=== PATIENT | female | born 1960 | race Caucasian/White ===

== ENCOUNTER 2024-03-06 11:13 | Outpatient (CLI) | payer BC ==
--- NOTE | 2024-03-06 13:39 | Mammography Report ---
BILATERAL DIGITAL DIAGNOSTIC MAMMOGRAM 3D/2D: 03/06/2024 CLINICAL: Patient returns for additional imaging over a suspected mass in the left breast. No prior exams were available for comparison. Both breasts are heterogeneously dense, which may obscure small masses (category c / 51-75% glandular tissue). There is a possible equal density focal asymmetry with an obscured margin in the right breast at 11 o 'clock posterior depth. There is an irregular high density mass with a spiculated and microlobulated margin in the left breas t central to the nipple with involvement of all four quadrants of the breast. The mass is difficult to measure due to it's size, but is approximately 8-9 cm in maximum dimension. This correlates as pal pated. There is skin involvement and nipple retraction associated with the mass. No other significant masses or calcifications are seen in either breast. IMPRESSION: INCOMPLETE: NEEDS ADDITIONAL IMAGING EVALUATION The possible equal density focal asymmetry in the right breast at 11 o'clock posterior depth has a di fferential diagnosis of fibroglandular tissue and is indeterminate. An ultrasound is recommended. The large irregular high density mass in the left breast central to the nipple is indeterminate. An ultrasound is recommended. Based on the Tyrer Cuzick model (a risk assessment model) the patient's lifetime risk is 9.3% and her 10 year risk is 4.0%. According to the ACR, ACS, and NCCN guidelines, an annual breast MRI exam donna g with mammogram is recommended if the patient's lifetime risk is 20% or greater. This exam was interpreted at Station ID: [id number]. NOTE: For mammograms, a report in lay terms will be sent to the patient. Approximately 15% of breast malignancies will not be visualized mammographically. In the management of a palpable breast mass, a negative mammogram must not discourage biopsy of a clinically suspicious lesion. Electronically Signed By: Natalio Mitchell M.D. ar/:03/06/2024 12:24:23 ACR BI-RADS Category 0: Incomplete 3340F PARENCHYMAL PATTERN: (D) - The breast(s) demonstrate(s) heterogeneously dense fibroglandular parenchy ma. BI-RADS CATEGORY: (0) - 0 Ultrasound [id number] Immediate follow-up LATERALITY: (B)
--- NOTE | 2024-03-06 13:39 | Ultrasound Report ---
LIMITED ULTRASOUND OF LEFT BREAST AND AXILLA: 03/06/2024 CLINICAL: Palpable left breast lump. Comparison is made to exam dated: 03/06/2024 mammogram - [facility]. Color flow ultrasound of the left breast 12 o'clock, retroareolar, and axilla regions was performed. Lee scale images of the real-time examination were reviewed. There is an irregular mass in the left breast central to the nipple middle depth. This irregular mas s is hypoechoic. This correlates as palpated and with breast MRI findings. Color flow imaging demon strates that there is vascularity present. Mass is measured at 5.0 x 2.8 x 4.3 cm on ultrasound shravan ges, but the size is likely underestimated due to the limitations of ultrasound scanning. There also is a 0.6 cm x 0.6 cm x 1 cm left axillary lymph node with eccentric cortical thickening. IMPRESSION: HIGHLY SUGGESTIVE OF MALIGNANCY The large irregular mass in the left breast central to the nipple middle depth is highly suggestive o f malignancy. An ultrasound guided biopsy is recommended. Alternatively, skin biopsy or surgical bi opsy could be performed due dermal involvement. The findings and recommendations were discussed with the patient in person at the time of the exam. Consider breast MRI to evaluate the extent of disease . The 0.6 cm x 0.6 cm x 1 cm left axillary lymph node with eccentric cortical thickening is suspicious of malignancy. An ultrasound guided biopsy is recommended. This exam was interpreted at Station ID: [id number]. Electronically Signed By: Natalio Mitchell M.D. ar/:03/06/2024 12:47:56 Ultrasound BI-RADS: 5 Highly suggestive of malignancy BI-RADS CATEGORY: (5) - 5 Biopsy [id number] Immediate follow-up LATERALITY: (L)
--- NOTE | 2024-03-06 13:39 | Ultrasound Report ---
LIMITED ULTRASOUND OF RIGHT BREAST: 03/06/2024 CLINICAL: Patient returns today to evaluate a focal asymmetry in the right breast. Comparison is made to exam dated: 03/06/2024 mammogram - [facility]. Color flow ultrasound of the right breast 10-11 o'clock region was performed. Lee scale images of t he real-time examination were reviewed. No significant abnormalities were seen sonographically in the right breast. IMPRESSION: NEGATIVE There is no sonographic evidence of malignancy. There is no abnormality seen in the right breast to correspond with the mammography finding in the up per outer quadrant which is consistent with normal fibroglandular tissue. This exam was interpreted at Station ID: [id number]. Electronically Signed By: Natalio chirinos/mei:03/06/2024 12:48:45 letter sent: No_Letter Ultrasound BI-RADS: 1 Negative BI-RADS CATEGORY: (1) - 1 Unspecified - other recall n/a LATERALITY: (B)
== END 2024-03-06 11:14 | disposition home or self-care (01) ==
LOC: DI 11:13
PROVIDERS: ATTEND Family Medicine
DX: R92.8 Other abnormal and inconclusive findings on diagnostic imaging of breast (principal); N63.42 Unspecified lump in left breast, subareolar; R92.333 Mammographic heterogeneous density, bilateral breasts

== ENCOUNTER 2024-03-20 13:36 | Outpatient (CLI) | payer BC ==
[2024-03-20] MEDS ORDERED: LIDOCAINE 1%-EPI 1:100000 20 ML MDV ONE (13:52)
[2024-03-20] MEDS ORDERED: LIDOCAINE-MPF 1% 5 ML VIAL ONE (13:53)
[2024-03-20] MEDS ORDERED: LIDOCAINE-MPF 1% 5 ML VIAL TD ONE (15:40)
[2024-03-20] MEDS: LIDOCAINE 1%-EPI 1:100000 20 ML MDV SUBQ ONE (15:44)
--- NOTE | 2024-03-21 07:44 | Mammography Report ---
UNILATERAL LEFT DIGITAL DIAGNOSTIC MAMMOGRAM WITH EXAGGERATED CC - LEFT BREAST POST-PROCEDURE IMAGING FOR MARKER PLACEMENT: 03/20/2024 CLINICAL: Post left breast ultrasound biopsy clip placement imaging. Comparison is made to exams dated: 03/06/2024 ultrasound and 03/06/2024 mammogram - [facility]. The left breast is heterogeneously dense, which may obscure small masses (category c / 51-75% glandul ar tissue). There is a marker clip in the appropriate position in the left breast central to the nipple middle de pth. This marker clip placement is at the biopsy site. IMPRESSION: POST PROCEDURE MAMMOGRAM FOR MARKER PLACEMENT There is a marker clip in the appropriate position in the left breast central to the nipple middle de pth. This marker clip placement is at the biopsy site. A clip was also placed in the biopsied axillary lymph node, which could not be visualized on mammogra phy. Based on the Tyrer Cuzick model (a risk assessment model) the patient's lifetime risk is 9.3% and her 10 year risk is 4.0%. According to the ACR, ACS, and NCCN guidelines, an annual breast MRI exam donna g with mammogram is recommended if the patient's lifetime risk is 20% or greater. This exam was interpreted at Station ID: [id number]. NOTE: For mammograms, a report in lay terms will be sent to the patient. Approximately 15% of breast malignancies will not be visualized mammographically. In the management of a palpable breast mass, a negative mammogram must not discourage biopsy of a clinically suspicious lesion. Electronically Signed By: Benjamin Martin M.D. lc/:03/20/2024 16:08:57 ACR BI-RADS Category Post-procedure mammogram for marker placement PARENCHYMAL PATTERN: (D) - The breast(s) demonstrate(s) heterogeneously dense fibroglandular pardiego ma. BI-RADS CATEGORY: () - Unspecified - other recall n/a LATERALITY: (B)
--- NOTE | 2024-03-28 14:20 | Ultrasound Report ---
ULTRASOUND GUIDED BIOPSY LEFT BREAST USING VACUUM DEVICE WITH MARKING DEVICE INSERTED AND POST MAMMOG RAPHIC IMAGIN03/20/2024 CLINICAL: Left Breast Mass. PATIENT CONSENT: Risks (minor bleeding, infection, vasovagal reaction and repeat procedure), benefits and alternatives were explained to the patient and written informed consent was obtained. Correlation is made to exams dated: 03/06/2024 ultrasound and 03/06/2024 mammogram - [facility]. An ultrasound guided biopsy using real-time ultrasound was performed for the concerning irregular sha ped mass located in the left breast central to the nipple middle depth. This was described on the pr evious ultrasound report. The skin was prepped in the usual manner. Local anesthetic was administer ed to the access site. A skin jay was made in the breast. The abnormality was approached from the lateral aspect. A 12 gauge biopsy needle was placed adjacent to the abnormality under ultrasound jean dance. Once the needle was documented to be in the correct location, three specimens were obtained u sing the Mammotome biopsy system. A clip was inserted into the biopsy cavity. Post procedure mammog raphic imaging demonstrates the location device at the targeted area. The specimens were sent to the laboratory for pathological analysis. IMPRESSION: ULTRASOUND GUIDED BIOPSY MALIGNANT Ultrasound guided biopsy of the mass in the left breast central to the nipple middle depth was succes sful. 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 Pathology resu lts are concordant with imaging findings. Oncologic/surgical consultation recommended. This exam was interpreted at Station ID: [id number]. Benjamin Martin M.D. lc/:03/28/2024 09:17:47 BI-RADS CATEGORY: () - Unspecified - other recall n/a LATERALITY: (B)
--- NOTE | 2024-03-28 14:20 | Ultrasound Report ---
ULTRASOUND GUIDED BIOPSY LEFT BREAST WITH MARKING DEVICE INSERTED AND POST MAMMOGRAPHIC IMAGIN03/20 CLINICAL: Left axillary node biopsy. PATIENT CONSENT: Risks (minor bleeding, infection, vasovagal reaction and repeat procedure), benefits and alternatives were explained to the patient and written informed consent was obtained. Correlation is made to exams dated: 03/06/2024 ultrasound and 03/06/2024 mammogram - [facility]. An ultrasound guided biopsy using real-time ultrasound was performed for the concerning lymph node lo cated in the left axillary tail. This was described on the previous ultrasound report. The skin was prepped in the usual manner. Local anesthetic was administered to the access site. A skin jay was made in the breast. The abnormality was approached from the lateral aspect. An 18 gauge biopsy nee dle was placed adjacent to the abnormality under ultrasound guidance. Once the needle was documented to be in the correct location, four specimens were obtained using a BARD biopsy device. A clip was inserted into the biopsy cavity. Post procedure mammographic imaging demonstrates the location devic e at the targeted area. The specimens were sent to the laboratory for pathological analysis. IMPRESSION: ULTRASOUND GUIDED BIOPSY MALIGNANT Ultrasound guided biopsy of the lymph node in the left axillary tail was successful. Pathology indic ates malignant metastatic to axillary lymph nodes (MDN). Pathology results are concordant with imagi findings. This exam was interpreted at Station ID: [id number]. Benjamin johnston/[email or web address]:03/28/2024 09:19:39 BI-RADS CATEGORY: () - Unspecified - other recall n/a LATERALITY: (B)
== END 2024-03-20 13:37 | disposition home or self-care (01) ==
LOC: DI 13:36
PROVIDERS: ATTEND Family Medicine
DX: C50.112 Malignant neoplasm of central portion of left female breast (principal); C77.3 Secondary and unspecified malignant neoplasm of axilla and upper limb lymph nodes; Z17.1 Estrogen receptor negative status [ER-]
CPT/HCPCS: 19083; 38505

== ENCOUNTER 2024-03-27 08:00 | Outpatient (CLI) | payer BC ==
[2024-03-27 15:54] LABS: BASOPHILS # (AUTO) 0.1 10^3/uL (0.0-0.1); BASOPHILS % (AUTO) 0.7 %; EOSINOPHILS # (AUTO) 0.1 10^3/uL (0.0-0.7); EOSINOPHILS % (AUTO) 0.3 %; HCT - HEMATOCRIT 38.7 % (37.0-47.0); HGB - HEMOGLOBIN 12.9 g/dL (12.0-16.0); LYMPHOCYTES # (AUTO) 2.7 10^3/uL (1.5-3.5); LYMPHOCYTES % (AUTO) 18.7 %; MEAN CORPUSCULAR HEMOGLOBIN 32.8 pg (27.0-31.0); MEAN CORPUSCULAR HGB CONC 33.3 g/dL (32.0-36.0); MEAN CORPUSCULAR VOLUME 98.5 fL (81.0-99.0); MEAN PLATELET VOLUME 10.9 fL (7.9-10.8); MONOCYTES # (AUTO) 1.7 10^3/uL (0.0-1.0); MONOCYTES % (AUTO) 11.7 %; NEUTROPHILS # (AUTO) 9.8 10^3/uL (1.5-6.6); NEUTROPHILS % (AUTO) 66.8 %; NRBC ABSOLUTE COUNT (AUTO) 0.08 x10^3/uL; NUCLEATED RED BLOOD CELLS AUTO 0.5 /100WBC; PLT - PLATELET COUNT 282 10^3/uL (130-450); RED BLOOD COUNT 3.93 10^6/uL (4.20-5.40); RED CELL DISTRIBUTION WIDTH 16.7 % (12.0-15.0); WHITE BLOOD COUNT 14.7 x10^3/uL (4.8-10.8)
[2024-03-27 15:58] LABS: INR 1.1 (0.8-1.2); PT - PROTHROMBIN TIME 12.6 secs (9.9-12.6); SLIDE REVIEW? Indicated
[2024-03-27 16:35] LABS: ALBUMIN 3.3 g/dL (3.2-5.5); BILIRUBIN,TOTAL 1.6 mg/dL (0.2-1.0); CALCIUM 8.9 mg/dL (8.5-10.3); CREATININE 0.5 mg/dL (0.6-1.3); POTASSIUM 3.9 mmol/L (3.5-4.5); TOTAL PROTEIN 6.7 g/dL (6.4-8.9)
[2024-03-27 17:39] LABS: DIFFERENTIAL COMMENT MANUAL=AUTO DIFF; PLATELET ESTIMATE, MANUAL NORMAL (130-450,000) (NORMAL); PLATELET MORPHOLOGY NORMAL APPEARANCE (NORMAL); RBC MORPHOLOGY (MULTIPLE) NORMAL APPEARANCE (NORMAL)
== END 2024-03-27 23:59 | disposition home or self-care (01) ==
LOC: LAB 08:00
PROVIDERS: ATTEND Surgery
DX: C50.812 Malignant neoplasm of overlapping sites of left female breast (principal)
CPT/HCPCS: 36415; 80053; 85025; 85610

== ENCOUNTER 2024-04-05 08:10 | Day surgery (SDC) | payer BC ==
[2024-04-05] MEDS ORDERED: CLINDAMYCIN 900 MG/50 ML 900 MG/50 ML BAG IV ONE (08:16)
[2024-04-05] MEDS: LACTATED RINGERS 1,000 ML IV ONE ×2 (08:42→10:35)
--- NOTE | 2024-04-05 08:52 | ANESTHESIA ---
Pre-Anesthesia VS, & Labs - Diagnosis breast cancer - Procedure port placement Vital Signs: Temp Pulse Resp BP Pulse Ox O2 Flow Rate 36.9 C 92 18 115/68 99 04/05/24 08:28 04/05/24 08:28 04/05/24 08:28 04/05/24 08:28 04/05/24 08:28 Height: 5 ft 2 in Weight (kg): 45.7 kg Body Mass Index: 18.4 BMI Classification: Underweight - NPO >8 hours - Is Patient ?: No Home Medications and Allergies Home Medications: Ambulatory Orders HYDROcod/ACETAM 5/325 [Danforth 5/325] 1 tablet PO Q6H PRN 03/28/24 Loratadine [Claritin] 10 mg PO PRN PRN 03/28/24 HYDROcod/ACETAM 5/325 [Danforth 5/325] 1 tablet PO Q6H PRN 03/28/24 Loratadine [Claritin] 10 mg PO PRN PRN 03/28/24 Allergies/Adverse Reactions: Allergies Allergy/AdvReac Type Severity Reaction Status Date / Time NSAIDS (Non-Steroidal Allergy Anaphylaxis Verified 03/28/24 12:40 Anti-Inflamma Penicillins Allergy Anaphylaxis Verified 03/28/24 12:40 Anes History & Medical History - Anesthetic History Anesthesia Complications: reports: No previous complications - Medical History Cardiovascular: reports: None Pulmonary: reports: None Gastrointestinal: reports: None Urinary: reports: None Musculoskeletal: reports: Osteoarthritis Endocrine/Autoimmune: reports: None Skin: reports: None Smoking Status: Former smoker Psychosocial: reports: Alcohol (3-4 week) History of Cancer?: Yes - Surgical History Gynecologic: reports: Other Exam General: Alert, Oriented x3 Dental: WNL Mouth Opening: Greater than 4 Fingerbreadths Neck Mobility: Normal Mallampati classification: II Thyromental Distance: greater than 6 cm Respiratory: Lungs clear Cardiovascular: Regular rate Plan Anesthesia Type: MAC, Total IV Consent for Procedure(s) Verified and Reviewed: Yes Code Status: Attempt Resuscitation ASA classification: 3-Severe systemic disease Is this case an emergency?: No
[2024-04-05] MEDS ORDERED: LIDOCAINE 1%-EPI 1:100000 20 ML MDV ONE (08:59)
[2024-04-05] MEDS ORDERED: MIDAZOLAM 2 MG/2 ML VIAL ONE (08:59)
[2024-04-05] MEDS ORDERED: BUPIVACAINE 0.5%-EPI 1:200000 PF 10 ML VIAL ONE (08:59)
[2024-04-05] MEDS ORDERED: fentaNYL 100 MCG/2 ML VIAL ONE (08:59)
[2024-04-05] MEDS ORDERED: LIDOCAINE-MPF 2% 5 ML VIAL ONE (08:59)
[2024-04-05] MEDS ORDERED: lidocaine 1% 20 ML MDV ONE (09:00)
[2024-04-05] MEDS: LIDOCAINE 1% 50 ML MDV SUBQ ONE ×2 (10:01)
[2024-04-05] MEDS: BUPIVACAINE 0.5%-EPI 1:200000 PF 30 ML VIAL SUBQ ONE ×2 (10:02)
[2024-04-05] MEDS ORDERED: PROPOFOL 200 MG/20 ML VIAL IVP ONE (10:04)
--- NOTE | 2024-04-05 10:52 | OPERATIVE REPORT ---
Operative Report - General Procedure Date: 04/05/24 Planned Procedure: chemoport placement Pre-Op Diagnosis: left breast cancer Procedure Performed: port placement, RIGHT internal jugular vein Post Op Diagnosis: left breast cancer - Procedure Note Primary Surgeon: Jenni Iniguez DO, FACS Anesthesia Technique: MAC Pathology: none Estimated Blood Loss (mL): 2 Indications: New diagnosis of Stage 3B vs Stage 4 breast cancer, chemotherapy indicated. Findings: 8F Powerport MR-compatible implatable port placed to RIJ under US and fluoroscopic guidance. Complications: none - Other Other Information/Narrative: The patient was met in the preoperative holding area where informed consent was confirmed and all questions and concerns were answered. The patient was then taken back to the operating room where a time-out was performed to ensure correct patient, site, and surgical procedure. The chest and neck bilaterally were prepped and draped in standard fashion, antibiotics were administered, and monitored sedation was initiated by the QUALITY ASSURANCE/R&D LAB TECHNICIAN. The right internal jugular vein was visualized in trendelenberg position under ultrasound, and accessed with seldinger technique and a wire advanced into the vena cava, which was confirmed with XRAY. A subcutaneous pocket at the right anterior chest two finger breadths below the clavicle was made with bovie electrocautery after injecting local anesthetic. The port hub was secured in the pocket with 2-0 vicryl at the interior aspect and 2-0 prolene at the right superior and left superior aspect. The catheter was then tunneled subcutaneously to the right neck adjacent to the wire using the tunneler. The catheter was then flushed with injectable saline. The catheter length was measured with XRAY and cut to 23cm. The dilator and sheath were then advanced over the wire under fluoroscopic visualization, and the dilator and wire were removed. The catheter was then threaded through the peel-away sheath, and its final position in the superior vena cava 2cm below the dilia was confirmed on XRAY. The port and then catheter were then heparin-locked after confirming that blood could be easily aspirated. The subcutaneous pocket was irrigated, remainder of local injected, and the skin closed with 3-0 vicryl deep dermal sutures followed by running 4-0 monocryl subcuticular sutures. The Skin incision at the right neck was closed with a single 4-0 monocryl subcuticular suture. Dermabond was applied. There were no complications. The patient was awoken and taken to the PACU where a postop chest XRAY was obtained, showing no pneumothorax. All sponge and needle counts were correct. Jenni Iniguez DO, FACS General Surgeon Jake
--- NOTE | 2024-04-05 11:11 | Discharge Plan ---
Discharge Plan Problem Reviewed?: Yes Disposition: Home, Self Care Condition: Good Prescriptions: oxyCODONE [Roxicodone] 5 mg PO Q4-6H PRN 14 Days #10 tablet PRN Reason: Moderate Pain (Level 4-6) Diet: Regular Activity Restrictions: No Restrictions Shower Restrictions: No Driving Restrictions: No (unless taking oxycodone - do not drive when taking narcotics. ) Plan of Treatment: Continue follow up with Dr. Townsend and Dr. Iniguez, as well as scheduled imaging studies. The port may be used immediately by nursing. No Smoking: If you smoke, Please STOP! Call for help. Follow-up with: Tiffani Townsend MD [Provider Admit Priv/Credential] - Jenni Iniguez DO [Provider Admit Priv/Credential] -
[2024-04-05 11:23] VITALS: BP 93/72; O2SAT 97
--- NOTE | 2024-04-05 11:25 | XRAY Report ---
PROCEDURE: Chest 1V INDICATIONS: r/o PTX s/p RIJ port placement in OR - upright TECHNIQUE: One view of the chest was acquired. COMPARISON: None. FINDINGS: Surgical changes and devices: Right chest wall port hip projects over the low SVC. Lungs and pleura: No pleural effusions or pneumothorax. Lungs are clear. Mediastinum: Mediastinal contours appear normal. Heart size is normal. Bones and chest wall: No suspicious bony lesions. Overlying soft tissues appear unremarkable. IMPRESSION: Right chest wall port. No pneumothorax. Reviewed by: Jones Butler MD on 04/05/2024 11:24 AM PDT Approved by: Jones Butler MD on 04/05/2024 11:24 AM PDT Station ID: [id number]
--- NOTE | 2024-04-05 11:32 | XRAY Report ---
PROCEDURE: OR Port-A-Cath INDICATIONS: PORTACATH PLACEMENT CONTRAST: None FLUORO TIME: 000.4 TECHNIQUE: Real time fluoroscopy was performed of the thorax. COMPARISON: None. FINDINGS/IMPRESSION: Fluoroscopic guidance utilized for a right-sided port placement. Reviewed by: Jones Butler MD on 04/05/2024 11:30 AM PDT Approved by: Jones Butler MD on 04/05/2024 11:30 AM PDT Station ID: [id number]
--- NOTE | 2024-04-05 15:32 | ANESTHESIA POST OP EVALUATION ---
Anesthesia Post Eval - Post Anesthesia Eval Vitals: Last Vital Signs Temp 36.6 C 04/05/24 11:00 Pulse 85 04/05/24 11:00 Resp 16 04/05/24 11:00 BP 93/72 04/05/24 11:00 Pulse Ox 97 04/05/24 11:00 O2 Flow Rate CV Function Including HR & BP: Stable Pain Control: Satisfactory Nausea & Vomiting: Negative Mental Status: Baseline Respiratory Status: Airway Patent Hydration Status: Satisfactory Anesthesia Complications: None
== END 2024-04-05 08:11 | disposition home or self-care (01) ==
LOC: SDS 08:10
PROVIDERS: ATTEND Surgery
DX: C50.812 Malignant neoplasm of overlapping sites of left female breast (principal); Z17.1 Estrogen receptor negative status [ER-]
CPT/HCPCS: 36561; 71045; C1788; J7120

== ENCOUNTER 2024-04-07 10:22 | Outpatient (CLI) | payer BC ==
[~2024-04-07 10:22] MED LIST: iohexoL-300 100 ML VIAL ONE
[2024-04-07] MEDS ORDERED: iohexoL-300 100 ML VIAL ONE (10:27)
[2024-04-07] MEDS ORDERED: DIATRIZOATE MEGLU/DIATRIZO SOD 30 ML BOTTLE PO ONE (10:27)
--- NOTE | 2024-04-07 13:05 | CT Report ---
PROCEDURE: Abdomen/Pelvis W INDICATIONS: BREAST CA CONTRAST: omni, 100 TECHNIQUE: After the administration of intravenous contrast, a CT scan of the abdomen and pelvis was performed. Images were recorded and evaluated at appropriate window settings. Reformats: coronal and sagittal. F or radiation dose reduction, the following was used: automated exposure control, adjustment of mA and /or kV according to patient size. COMPARISON: None. FINDINGS: Image quality: Diagnostic. Lower chest: Separately dictated Liver: Hepatomegaly. Innumerable liver metastases. Index lesions as follows: -2.1 cm in segment 6/7 (series 2, image 46). -2.3 cm and segment 7 (series 2, image 40). Gallbladder: Contracted, with a diffusely thickened wall. Biliary tree: No intrahepatic or extrahepatic dilation, accounting for age. Spleen: No splenomegaly. Pancreas: No pancreatic ductal dilation. Adrenals: No adrenal nodule. Kidneys and ureters: No hydronephrosis. No renal cystic lesion which requires follow up. No solid mas s. Stomach, bowel and peritoneum: No gastric or small bowel dilation. No abnormal wall thickening. Moder ate volume ascites. Diverticulosis without evidence of diverticulitis. Lymph nodes: No central or retroperitoneal adenopathy. Vessels: No infrarenal aortic aneurysm. Patent portal vein. PELVIS Reproductive organs: Right ovarian cystic lesion with a mildly thickened wall measuring 2 cm. Bladder: No abnormal wall thickening, accounting for underdistention. Pelvic lymph nodes: No pelvic adenopathy by size criteria. Bones: A subtle dense lesions throughout the spine and pelvis, concerning for diffuse metastatic dise ase. For example, the dense lesion in the right posterior iliac bone measuring 7 mm (series 2, image 98). No measurable soft tissue component. Other: No significant ventral or inguinal hernia. IMPRESSION: Diffuse metastatic disease of the liver. Suspected diffuse metastatic disease of the bones. Correlate with bone scan. Right ovarian cystic lesion with a mildly thickened wall measuring 2 cm. Recommend pelvic ultrasound for complete characterization. Moderate volume ascites. Chest CT separately dictated. Reviewed by: Jones Butler MD on 04/07/2024 1:04 PM PDT Approved by: Jones Butler MD on 04/07/2024 1:04 PM PDT Station ID: [id number]
--- NOTE | 2024-04-07 13:18 | CT Report ---
PROCEDURE: Chest W INDICATIONS: BREAST CA CONTRAST: omni, 100 TECHNIQUE: After the administration of intravenous contrast, a CT scan of the chest was performed. Images were recorded and evaluated at appropriate window settings. Reformats: axial MIP of the chest, coronal and sagittal. For radiation dose reduction, the following was used: automated exposure control, adjustme nt of mA and/or kV according to patient size. COMPARISON: None. FINDINGS: Image quality: Diagnostic. Chest wall and lower neck: No thyroid nodule which requires sonographic follow up. Dominant left maria [address] st mass measuring 6.4 x 4.4 cm. Nodularity anterior to the breast mass concerning for satellite lesio ns. There are metastatic deposits in the left pectoralis major muscle. Enlarged and heterogeneous lef t level 1 and level 2 lymph nodes, consistent with metastatic disease. Enlarged internal mammary node measuring 5 mm short axis (series 2, image 43). Right IJ central venous catheter tip terminates in t he low SVC. Gas around the hub, presumably from recent placement. Lungs and pleura: No consolidation. No pleural effusions. No pneumothorax. No suspicious pulmonary n odules which require follow up. Mediastinum: Heart size is normal. No pericardial effusion. No large vessel abnormality. No mediastin al adenopathy by size criteria. Bones: Subtle dense bony lesions, concerning for osseous metastatic disease. For example, the dense l esion in the inferior endplate of T4. Upper Abdomen: Separately dictated. IMPRESSION: Dominant left breast mass with satellite nodules. Some solid nodules are present within the left pect oralis major muscle. Lymphadenopathy of the axillary level 1, level 2 and internal mammary stations. Suspected diffuse osseous metastatic disease. Reviewed by: Jones Butler MD on 04/07/2024 1:16 PM PDT Approved by: Jones Butler MD on 04/07/2024 1:16 PM PDT Station ID: [id number]
[2024-04-07] MEDS: iohexoL-300 100 ML VIAL IVP ONE (14:11)
[2024-04-07] MEDS: DIATRIZOATE MEGLU/DIATRIZO SOD 30 ML BOTTLE PO ONE (14:11)
== END 2024-04-07 10:23 | disposition home or self-care (01) ==
LOC: DI 10:22
PROVIDERS: ATTEND Surgery
DX: C50.812 Malignant neoplasm of overlapping sites of left female breast (principal); R59.0 Localized enlarged lymph nodes; R93.7 Abnormal findings on diagnostic imaging of other parts of musculoskeletal system; C78.7 Secondary malignant neoplasm of liver and intrahepatic bile duct; N83.201 Unspecified ovarian cyst, right side
CPT/HCPCS: 71260; 74177; Q9963; Q9967

== ENCOUNTER 2024-04-15 13:42 | Outpatient (CLI) | payer BC | END 2024-04-15 13:43 | disposition home or self-care (01) | LOC: RT 13:42 | PROVIDERS: ATTEND Surgery | DX: C50.812 Malignant neoplasm of overlapping sites of left female breast (principal) | CPT/HCPCS: 93005 ==

== ENCOUNTER 2024-04-23 12:08 | Outpatient (CLI) | payer BC | END 2024-04-23 23:59 | disposition E | LOC: EMS 12:08 ==